=== PATIENT | female | born 1985 | race Caucasian/White ===

== ENCOUNTER 2020-02-03 06:03 | Emergency (ER) | payer MEDICAID, SELFPAY ==
[2020-02-03 06:23] VITALS: BP 127/58; PULSE 89; RESP 16; TEMP 36.8; O2SAT 97; BMI 46.9
[2020-02-03 06:29] VITALS: BMI 45.7
--- NOTE | 2020-02-03 06:53 | HMH.EDSKAF ---
ED Disposition Clinical Impression: Abscess of skin or subcutaneous tissue Qualifiers: Site of cutaneous abscess: buttock Qualified Code(s): L02.31 - Cutaneous abscess of buttock Diabetes mellitus Qualifiers: Diabetes mellitus type: type 1 Diabetes mellitus complication status: with other specified complication Qualified Code(s): E10.69 - Type 1 diabetes mellitus with other specified complication Disposition: Home, Self-Care Condition on Discharge: Good Instructions: DI for Skin Abscess Additional Instructions: see pcp saturday and also f/u with surg Prescriptions: Sulfamethoxazole/Trimethoprim [Bactrim DS tablet] 1 each PO BID #14 tab Transmission Status: Pending to [facility] clindamycin HCL [Clindamycin HCl 300mg Cap] 300 mg PO Q8 #21 cap Transmission Status: Pending to [facility] Acetaminophen with Codeine [Tylenol with Codeine #3 tablet] 1 tab PO Q8H PRN #9 tablet PRN Reason: Moderate To Severe Pain Transmission Status: Received by [facility] Referrals: Marisela Peralta [Primary Care Provider] - Steve Lomeli MD [Staff Physician] - - Critical Care Critical Care Time: No Attestation: On , the high probability of a clinically significant, sudden or life threatening deterioration of the following system(s) required my full and direct attention, intervention and personal management. The time I documented below is in addition to time spent performing reported procedures but includes the following listed in this critical care notation. Medical Decision Making - Medical Records Medical records reviewed: Yes: I reviewed the patient's medical records. - Jose Inquiry Pt receiving controlled substance: No Vital Signs: 02/03/20 06:23 02/03/20 07:16 02/03/20 08:07 Temperature 98.3 F 98.9 F Temperature Source Oral Oral Pulse Rate [Right Brachial] 89 92 H 95 H Respiratory Rate 16 16 16 Blood Pressure [Right Arm] 127/58 L 118/80 126/72 Blood Pressure Mean [Right Arm] 81 92 90 Blood Pressure Source [Right Arm] Automatic Cuff Blood Pressure Position [Right Arm] Sitting Sitting Sitting 02 Sat by Pulse Oximetry 97 98 98 Oxygen Delivery Method Room Air Room Air - Lab Data Lab results reviewed: Yes: I reviewed the patient's lab results. Lab Results 02/03/20 07:35: WBC 9.5, RBC 4.48, Hgb 13.3, Hct 39.6, MCV 88.3, MCH 29.8, MCHC 33.7, RDW 12.9, Plt Count 214, MPV 8.9, Neut % (Auto) 74.9, Lymph % (Auto) 19.1, [place] % (Auto) 4.5, Eos % (Auto) 1.2, Baso % (Auto) 0.3, Neut # (Auto) 7.1, Lymph # (Auto) 1.8, [place] # (Auto) 0.4, Eos # (Auto) 0.1, Baso # (Auto) 0.0 02/03/20 07:35: Sodium 135 L, Potassium 3.8, Chloride 99, Carbon Dioxide 28, Anion Gap 11.8, BUN 12, Creatinine 0.40 L, Estimated Creat Clear 177, Estimated GFR 182, Est GFR ( Amer) 220, Glucose 272 H, Calcium 9.3, Total Bilirubin 0.6, AST 20, ALT 21, Alkaline Phosphatase 84, Total Protein 7.0, Albumin 3.6, Globulin 3.4 H, Albumin/Globulin Ratio 1.1 02/03/20 07:35: Lactate 1.5 Result diagrams: 02/03/20 07:35 02/03/20 07:35 Orders (Tests/Meds): ED MEDICATIONS Generic Name Dose Route Start Last Admin Trade Name Freq PRN Reason Stop Dose Admin Vancomycin HCl 2,500 mg/ 500 mls @ 125 mls/hr 02/03/20 06:57 02/03/20 07:20 Sodium Chloride IV 02/03/20 10:56 125 mls/hr ONCE ONE Administration Protocol ORDERS Category Date Time Status Blood Culture Stat Micro 02/03/20 07:35 Received Wound Culture and Gram Stain Stat Micro 02/03/20 06:24 Results - Physician Consults Physician Consulted: eddie Reason -: Pt condition Skin/Abscess/FB HPI - General Chief complaint: Skin/Abscess/Foreign Body Stated complaint: Boil on botton Time Seen by Provider: 02/03/20 06:35 Mode of Arrival: Family Vehicle Source of Information: Patient, Medical Record Limitations: No Limitations Description of Symptoms (Recalled from ER Triage Doc. by RN): boil/abscess inside left butt cheek; spontane
--- NOTE | 2020-02-03 06:53 | PC.NURSE ---
dr morgan at bedside.
--- NOTE | 2020-02-03 07:12 | SUR.OPER ---
Preoperative diagnosis: Left perianal/superficial ischio rectal abscess Postoperative diagnosis: Same Procedure: Incision and drainage of superficial left perianal/ischio rectal abscess Anesthesia: None Description: The patient was maintained in a left lateral decubitus position in the emergency department. The superficial abscess and surrounding region were prepped with Betadine. A #11 scalpel was then utilized to incise the central area of fluctuance. Fluid was evacuated and the wound was packed open with gauze. EBL: Less than 5 mL Complications: No immediate
[2020-02-03 07:16] VITALS: BP 118/80; PULSE 92; RESP 16; O2SAT 98
[2020-02-03 07:45] LABS: Basophils % 0.3 % (0.1-2.0); Eosinophils # 0.1 K/mm3 (0.0-0.4); Eosinophils % 1.2 % (0.1-12.0); Hematocrit 39.6 % (37.0-47.0); Hemoglobin 13.3 g/dL (12.2-16.2); Lymphocytes # 1.8 K/mm3 (0.7-4.5); Lymphocytes % 19.1 % (10-50); Mean Corpuscular HGB Conc 33.7 g/dL (31.8-35.4); Mean Corpuscular Hemoglobin 29.8 pg (27.0-31.2); Mean Corpuscular Volume 88.3 fl (81-99); Mean Platelet Volume 8.9 fl (7.4-10.4); Monocytes # 0.4 K/mm3 (0.1-1.0); Monocytes % 4.5 % (1.7-9.3); Neutrophils # 7.1 K/mm3 (1.8-7.8); Neutrophils % 74.9 % (37.0-80.0); Platelet Count 214 K/mm3 (142-424); Red Blood Count 4.48 M/mm3 (4.20-5.40); Red Cell Distribution Width 12.9 % (11.5-17.5); White Blood Count 9.5 K/mm3 (4.8-10.8)
[2020-02-03 07:52] LABS: Chloride 99 mmol/L (98-107); Potassium 3.8 mmoL/L (3.5-5.1); Sodium 135 mmol/L (136-145)
[2020-02-03 07:54] LABS: Blood Urea Nitrogen 12 mg/dl (7-17); Creatinine Clearance Estimated 177 mL/min (50-200); Estimated Glomerular Filt Rate 182 ml/min (>60); GFR (African American) 220 ML/MIN (>60); Lactic Acid 1.5 mmol/L (0.7-2.1)
[2020-02-03 07:55] LABS: Alanine Aminotransferase 21 U/L (12-78); Albumin Level 3.6 g/dl (3.5-5.0); Albumin/Globulin Ratio 1.1 (1.1-1.8); Alkaline Phosphatase 84 U/L (38-126); Anion Gap 11.8 mEq/L (5-15); Aspartate Amino Transferase 20 U/L (14-36); Bilirubin,Total 0.6 mg/dl (0.2-1.3); Calcium 9.3 mg/dl (8.4-10.2); Carbon Dioxide 28 mmol/L (22.0-30.0); Globulin 3.4 g/dL (1.3-3.2); Glucose 272 mg/dl (74-100)
[2020-02-03 08:07] VITALS: BP 126/72; PULSE 95; RESP 16; TEMP 37.2; O2SAT 98
--- NOTE | 2020-02-03 09:30 | PC.NURSE ---
pt up to restroom
[2020-02-03 11:08] VITALS: BP 124/80; PULSE 74; RESP 16; O2SAT 100
--- NOTE | 2020-02-03 11:37 | PC.NURSE ---
Pt eating at this time.
[2020-02-03 11:44] VITALS: BP 126/70; PULSE 70; RESP 16; TEMP 36.7; O2SAT 98
== END 2020-02-03 11:46 | disposition home or self-care (01) ==
PROVIDERS: Emergency Provider Emergency Medicine; PCP Family Medicine
DX: L02.31 Cutaneous abscess of buttock (principal); E10.69 Type 1 diabetes mellitus with other specified complication
CPT/HCPCS: 36415; 80053; 83605; 85025; 87040; 87070; 87077; 87186; 87205; 96365; 96375; 99284; J3370